=== PATIENT | female | born 2005 | race Two or more races ===

== ENCOUNTER 2025-03-24 17:19 | Emergency (ER) | payer MEDICAID, SELFPAY ==
[2025-03-24 17:41] VITALS: BP 144/92; PULSE 83; RESP 17; TEMP 36.9; O2SAT 97; BMI 33.4
--- NOTE | 2025-03-24 17:47 | XR_ITS ---
Examination: Abdomen sonogram, Limited Date and time of exam: March 24, 2025, 1900 hours INDICATIONS: Epigastric pain radiating to the back beginning 10 days ago Technique: Real-time garcia scale transabdominal sonographic images of the upper abdomen obtained. Findings: Multiple gallstones Gallbladder wall 0.29 cm no edema Common bile duct 0.2 cm Pancreatic head 2.6 cm Liver 12.2 cm fatty infiltration no focal liver lesions Normal hepatopetal portal venous flow Patent IVC IMPRESSION: Cholelithiasis, negative for cholecystitis
--- NOTE | 2025-03-24 17:47 | PD.EDRME ---
Rapid Medical Screening Exam E Arrival date/time: 03/24/25 17:19 19-year-old female presents to the emergency department today for complaint of upper abdominal pain patient ports history of cholelithiasis patient reports symptom onset 10 days ago Chief Complaint: Abdominal Pain Time Seen by Provider: 03/24/25 17:35 Vital signs: Vital Signs Temperature 98.4 F 03/24/25 17:41 Pulse Rate 83 03/24/25 17:41 Respiratory Rate 17 03/24/25 17:41 Blood Pressure 144/92 H 03/24/25 17:41 Pulse Oximetry (%) 97 03/24/25 17:41 Oxygen Delivery Method Room Air 03/24/25 17:41 Exam: Clinically patient well-appearing does not appear ill or toxic patient is mild abdominal pain in epigastrium Clinical Impression: Lab work imaging ordered
[2025-03-24 18:27] LABS: Alanine Aminotransferase 25 U/L (10-49); Albumin, Serum 5.0 gm/dL (3.5-5.0); Albumin/Globulin Ratio 1.7 (1.2-2.2); Alkaline Phosphatase 118 U/L (46-116); Anion Gap 11 (7-16); Aspartate Amino Transferase 22 U/L (0-34); BUN/Creatinine Ratio 7 Ratio (12-20); Bilirubin,Total 0.4 mg/dL (0.3-1.2); Blood Urea Nitrogen < 5 mg/dL (9-23); Calcium 10.1 mg/dL (8.3-10.6); Calcium (Corrected) 10.1 mg/dL (8.5-10.1); Carbon Dioxide 26.3 mMol/L (20.0-31.0); Chloride 105 mMol/L (98-107); Creatinine (Component) 0.7 mg/dL (0.6-1.3); Estimated Creatinine Clearance 151.9 mL/min (>60); Globulin 2.9 gm/dL (2.3-3.5); Glucose 97 mg/dL (74-106); Lipase 28 U/L (12-53); Osmolality,Calculated 280 (275-295); Potassium 3.9 mMol/L (3.4-5.1); Sodium 142 mMol/L (136-145); Total Protein 7.9 gm/dL (5.7-8.2); eGFR > 60 See Note
[2025-03-24 18:29] LABS: Basophils # (Auto) 0.0 Thou/mm3 (0.0-0.2); Basophils % (Auto) 0 % (0-2.5); Eosinophils # (Auto) 0.2 Thou/mm3 (0.0-0.5); Eosinophils % (Auto) 2 % (0-10); Hematocrit 40.5 % (36.0-46.0); Hemoglobin 13.8 g/dL (12.0-16.0); Immature Granulocytes Auto 0.02 Thou/mm3 (0.00-0.00); Lymphocytes # (Auto) 3.4 Thou/mm3 (1.0-4.8); Lymphocytes % (Auto) 32 % (10-50); Mean Corpuscular HGB Conc 34.1 g/dl (31.0-37.0); Mean Corpuscular Hemoglobin 27.9 pg (25.0-35.0); Mean Corpuscular Volume 82 fL (80-100); Monocytes # (Auto) 0.7 Thou/mm3 (0.0-0.8); Monocytes % (Auto) 6 % (0-12); Neutrophils # (Auto) 6.3 Thou/mm3 (1.8-7.7); Neutrophils % (Auto) 59 % (37-80); Nucleated Red Blood Cell # 0.00 Thou/mm3 (0.00-0.00); Nucleated Red Blood Cell % 0 /100 WBC (0); Platelet Count 323 Thou/mm3 (140-440); RDW Standard Deviation 37.5 fL (36.4-46.3); Red Blood Count 4.94 Miln/mm3 (4.00-5.20); White Blood Count 10.5 Thou/mm3 (3.6-11.0)
--- NOTE | 2025-03-24 18:46 | PD.EDABDPN ---
ED Abdominal Pain RME/HPI General Chief Complaint: Abdominal Pain Stated complaint: UPPER MID ABD. PAIN RADIATING THROUGH BACK Time seen by provider: 03/24/25 17:35 Arrival date/time: 03/24/25 17:19 RME / HPI RME / HPI narrative: 03/24/25 17:19 19-year-old female presents to the emergency department today for complaint of upper abdominal pain patient ports history of cholelithiasis patient reports symptom onset [address] Banerjee?s Main ED Evaluation: 19yo female with a known history of gallstones presenting with diffuse upper abdominal pain that radiates to the RUQ and right flank that has been ongoing intermittently for the last 10 days. No postprandial exacerbation. No frequency, urgency, or urgency. Reports occasional diarrhea. No URI or cough. No fever or chills. LMP was 1 week [employer]. Patient's current pain pattern is similar to when she was initially diagnosed with gallstones. PMH includes gallstones and gastritis. PSH and social history are unremarkable. NKA. Related Data Previous Rx's ?Medication ?Instructions ?Recorded famotidine 20 mg tablet (Pepcid) 20 mg PO QDAY #30 tabs 03/24/25 hyoscyamine sulfate 0.125 mg 0.125 mg PO TID PRN cramping #10 03/24/25 tablet (Levsin) tabs Allergies Allergy/AdvReac Type Severity Reaction Status Date / Time No Known Allergies Allergy Verified 03/24/25 17:22 Review of Systems Review of Systems Systems Reviewed: All systems reviewed, normal except as documented Past Medical History Social History SMOKING STATUS: Never smoker ED Exam Narrative Physical exam: GENERAL APPEARANCE: alert and oriented x 4, nontoxic, resting comfortably, well-developed, well-nourished, no acute distress VITALS: All vitals were reviewed and the pulse ox is 97% on room air, which is normal according to my interpretation. HEENT: Normocephalic, atraumatic; pupils equal, round, reactive to light; EOMI; mucous membranes pink, moist; oropharynx clear NECK: Supple LUNGS: CTABL; no wheezes, no rales, no rhonchi HEART: Regular rate, regular rhythm; normal S1, S2; no murmurs ABDOMEN: non distended; normal BS; soft, no tenderness, no guarding, no rebound; no masses, no organomegaly, no hernia BACK: no CVA tenderness EXTREMITIES: atraumatic; no edema NEUROLOGIC: awake; alert and oriented x4; cranial nerves II-XII grossly intact; no focal sensory or motor deficits PSYCHIATRIC: appropriate mood and affect SKIN: warm, dry, normal color; no rashes Course Quality Measures none Orders Category Date Time Status US gall bladder Stat Exams 03/24/25 17:47 Completed CBC Stat Lab 03/24/25 17:58 Completed Comprehensive Metabolic Panel Stat Lab 03/24/25 17:58 Completed HCG Qualitative,Urine Stat Lab 03/24/25 17:47 Ordered Lipase Stat Lab 03/24/25 17:58 Completed UA, C/S IF [Urinalysis, C/S if Indicated] Stat Lab 03/24/25 17:47 Ordered Vital Signs Vital signs: Vital Signs Temperature 98.4 F 03/24/25 17:41 Pulse Rate 83 03/24/25 17:41 Respiratory Rate 17 03/24/25 17:41 Blood Pressure 144/92 H 03/24/25 17:41 Pulse Oximetry (%) 97 03/24/25 17:41 Oxygen Delivery Method Room Air 03/24/25 17:41 Abdominal Pain MDM MDM Narrative MDM Narrative:: Scribe Attestation: 03/24/25 Keturah Herrera am scribing for and in the presence of Dr. Banerjee. 19yo female with a known history of gallstones presenting with diffuse upper abdominal pain that radiates to the RUQ and right flank that has been ongoing intermittently for the last 10 days. No postprandial exacerbation. Please see PE findings. Lab markers including CBC and chemistries are unremarkable except for Alk Phos at elevated normal at 118. Remaining LFTs are normal. Gallbladder US demonstrated evidence of fatty liver and high normal gallbladder wall thickness 0.29cm with multiple gallstones, but normal CBD. Will place the patient on PPI, antispasmotic, and have the patient maintain low fat diet, and encourage general surgeon as symptoms are likely related to biliary colic. Patient data External records reviewed:: [facility] previous records (Per chart review, patient has no previous ED visits or admissions to this facility.) Clinical information provided by:: patient Social determinants that could affect healthcare access:: none Patient has the following chronic illnesses:: none How is presenting disease/condition affected by chronic disease/condition?: no chronic disease Evaluation data The following diagnostics were reviewed and interpreted by me:: lab results and radiology exam(s) Lab and/or radiology exams considered but not ordered:: none Interpretation Summary: [facility] Report Signed Patient: EDGAR PEREZ. Record#: [id number] Birthdate: 2005 Age/Sex: 19 / F [facility] Dr: Ordering Physician: Freddy ESPITIA)Victoriano NP Date of Service: 03/24/25 Procedure(s): US gall bladder Accession Number(s): [id number] cc: Nicanor Villeda PA-C; Freddy ESPITIA),Victoriano MONTERO; Ronald Jefferson MD~ Examination: Abdomen sonogram, Limited Date and time of exam: March 24, 2025, 1900 hours INDICATIONS: Epigastric pain radiating to the back beginning 10 days ago Technique: Real-time garcia scale transabdominal sonographic images of the upper abdomen obtained. Findings: Multiple gallstones Gallbladder wall 0.29 cm no edema Common bile duct 0.2 cm Pancreatic head 2.6 cm Liver 12.2 cm fatty infiltration no focal liver lesions Normal hepatopetal portal venous flow Patent IVC IMPRESSION: Cholelithiasis, negative for cholecystitis Dictated By: Ronald Jefferson MD Signed By: <Electronically signed by Ronald Jefferson MD in OV> 03/24/25 2114 Medications / Prescriptions Medications or Prescriptions considered but not ordered:: none Medication administrations:: see above, if any Consultations Consultation(s) initiated? (list below): No Diagnosis Differential diagnosis abdominal pain: pancreatitis Most likely diagnosis given after review of the tests above:: see clinical impression below Admission Indicated Admission indicated?: not indicated Admission Request Was there a request for admission?: No Disposition Plan Disposition Plan: Discharge Discharge Attestation Discharge Attestation: The patient and all family members were given an opportunity to ask questions and understood the discharge instructions. Discharge instructions specifically effects, indications for sooner follow up or return to the emergency department, and the expected course of current diagnosis. Patient condition: Stable Discharge Plan Plan Patient Disposition: HOME (Self Care) Discharge Disposition comment: Stable Prescriptions/Referrals Prescriptions/Med Rec: New famotidine [Pepcid] 20 mg tablet 20 mg PO QDAY Qty: 30 0RF hyoscyamine sulfate [Levsin] 0.125 mg tablet 0.125 mg PO TID PRN (Reason: cramping) Qty: 10 0RF Referrals: Nicanor Villeda PA-C [Primary Care Provider] - In 1 week Problem List Clinical Impression: Gastritis, Biliary colic symptom Patient/Caregiver Discharge Instructions Discharge Activity: activity as tolerated Diet Instructions: Low-fat diet Education Materials: ED Gallstones with Biliary Colic, ED Gastritis (Adult) Additional Instructions: Low-fat diet. Medication as directed. Follow-up primary care doctor for referral to general surgeon for consideration of cholecystectomy. Print Language: Chinese Stand Alone Forms: Gloria Award Info., Patient Portal Info Letter
--- NOTE | 2025-03-24 20:58 | PC.NURSE ---
2035 CALLED ULTRASOUND FOR READ ON IMAGE.
[2025-03-24 21:53] VITALS: BP 150/94; PULSE 88; RESP 17; TEMP 37.3; O2SAT 96
== END 2025-03-24 21:57 | disposition home or self-care (01) ==
PROVIDERS: Nurse Practitioner Primary Care; Emergency Provider Emergency Medicine; PCP Family Medicine
DX: K29.70 Gastritis, unspecified, without bleeding (principal); K80.70 Calculus of gallbladder and bile duct without cholecystitis without obstruction
CPT/HCPCS: 36415; 76705; 80053; 81001; 81025; 83690; 85025; 99283

== ENCOUNTER 2025-05-12 06:20 | Day surgery (SDC) | payer MEDICAID, SELFPAY ==
[2025-05-11 10:16] VITALS: BMI 37.0
[2025-05-11 11:11] LABS: Basophils # (Auto) 0.0 Thou/mm3 (0.0-0.2); Basophils % (Auto) 0 % (0-2.5); Eosinophils # (Auto) 0.1 Thou/mm3 (0.0-0.5); Eosinophils % (Auto) 1 % (0-10); Hematocrit 39.8 % (36.0-46.0); Hemoglobin 13.7 g/dL (12.0-16.0); Immature Granulocytes Auto 0.02 Thou/mm3 (0.00-0.00); Lymphocytes # (Auto) 4.6 Thou/mm3 (1.0-4.8); Lymphocytes % (Auto) 52 % (10-50); Mean Corpuscular HGB Conc 34.4 g/dl (31.0-37.0); Mean Corpuscular Hemoglobin 28.2 pg (25.0-35.0); Mean Corpuscular Volume 82 fL (80-100); Monocytes # (Auto) 0.4 Thou/mm3 (0.0-0.8); Monocytes % (Auto) 5 % (0-12); Neutrophils # (Auto) 3.6 Thou/mm3 (1.8-7.7); Neutrophils % (Auto) 41 % (37-80); Nucleated Red Blood Cell # 0.00 Thou/mm3 (0.00-0.00); Nucleated Red Blood Cell % 0 /100 WBC (0); Platelet Count 266 Thou/mm3 (140-440); RDW Standard Deviation 37.1 fL (36.4-46.3); Red Blood Count 4.85 Miln/mm3 (4.00-5.20); White Blood Count 8.7 Thou/mm3 (3.6-11.0)
[2025-05-11 11:23] LABS: Alanine Aminotransferase 110 U/L (10-49); Albumin, Serum 4.5 gm/dL (3.5-5.0); Albumin/Globulin Ratio 1.5 (1.2-2.2); Alkaline Phosphatase 108 U/L (46-116); Anion Gap 10 (7-16); Aspartate Amino Transferase 52 U/L (0-34); BUN/Creatinine Ratio 16 Ratio (12-20); Bilirubin,Total 0.5 mg/dL (0.3-1.2); Blood Urea Nitrogen 11 mg/dL (9-23); Calcium 8.7 mg/dL (8.3-10.6); Calcium (Corrected) 8.7 mg/dL (8.5-10.1); Carbon Dioxide 26.9 mMol/L (20.0-31.0); Chloride 106 mMol/L (98-107); Creatinine (Component) 0.7 mg/dL (0.6-1.3); Estimated Creatinine Clearance 139.3 mL/min (>60); Globulin 3.0 gm/dL (2.3-3.5); Glucose 103 mg/dL (74-106); Osmolality,Calculated 284 (275-295); Potassium 3.9 mMol/L (3.4-5.1); Sodium 143 mMol/L (136-145); Total Protein 7.5 gm/dL (5.7-8.2); eGFR > 60 See Note
[2025-05-11 11:34] LABS: HCG,Qualitative Serum Negative
[2025-05-12] VITALS (8 sets, daily range): BP systolic 110–138; BP diastolic 68–87; PULSE 72–107; RESP 12–20; TEMP 36.3–36.4; O2SAT 89–100; BMI 37.2
[2025-05-12] MEDS: RINGERS LACTATED 1000 ML 1,000 ML 20 ML IV (07:42)
--- NOTE | 2025-05-12 09:25 | SUR.PHASEI ---
0925: Pt. arrived with oral airway in place, vitals stable, breathing unlabored, no signs of distress, x4 dermabond sites to ABD CDI, no active bleed noted, report received from MD Estrada and Ese RN.
--- NOTE | 2025-05-12 09:32 | PD.SUROPNT ---
Date of Procedure 05/12/25 Pre Op Diagnosis Symptomatic cholelithiasis Post Op Diagnosis Cholelithiasis with cholecystitis Hydrops of the gallbladder Procedure Laparoscopic cholecystectomy Findings Distended and tense gallbladder with a stone at the neck of the gallbladder causing hydrops Procedure Description Patient was brought into the operating room in supine position. After administration of general endotracheal anesthesia abdomen was prepped and draped in standard surgical manner. A Veress needle was inserted through the umbilicus and pneumoperitoneum was obtained up to 15 mmHg. The Veress needle was then removed, a 5 mm infraumbilical incision was made and the 5mm trocar was inserted. Laparoscopic camera was placed. Under direct visualization a laparoscopic camera a 10 mm trocar was placed in subxiphoid and two 5 mm trocars placed in right upper quadrant. The gallbladder was identified and was noted to be very distended and tense with a stone in the neck of the gallbladder. The gallbladder was decompressed with an aspirator, the contents were clear fluid consistent with hydrops of the gallbladder. The gallbladder was retracted cephalad and laterally. Dissection started near the infundibulum of gallbladder where cystic duct and gallbladder junction clearly identified. The cystic duct was circumferentially dissected off the peritoneum and surrounding inflammatory tissue. The critical view of safety was clearly demonstrated. Cystic duct was then divided between 2 endoclips proximally and one distally. The cystic artery was similarly dissected and divided. The gallbladder was then from the liver bed using electrocautery. The gallbladder was then placed inside an Endo Catch and removed from the abdomen utilizing subxiphoid trocar site. The area was copiously and thoroughly washed and irrigated, all the fluid was suctioned and the suction fluid returned clear. Hemostasis achieved using electrocautery. Endoclips noted be in place and intact without any bleeding or any leakage. Hemostasis was adequate and satisfactory. The subxiphoid trocar sites fascial defect was closed with 0 Vicryl using Endo Closure device. Instruments and trocars removed, pneumoperitoneum was evacuated and the incisions closed with 4-0 Monocryl in subcuticular fashion. Instrument needle and sponge counts were all reported to be correct X2. Patient tolerated the procedure well, was extubated, breathing spontaneously and without difficulty and was transferred to postanesthesia care in stable condition. Anesthesia GETA and local Pathology / specimen Other (Gallbladder and contents) Estimated Blood Loss 10 Condition Stable Disposition PACU Surgeon Gita Abbott MD Surgical Staff Operation Date: 05/12/25 08:30 Case Staff Anesthesiologist: Valdez Estrada RN First Assistant: Selene Velez
[2025-05-12] MEDS: HYDROcodone/APAP 5/325 TABLET 1 TAB PO (10:17)
[2025-05-12] MEDS: ONDANSETRON INJ 2 MG/ML INJ 2 ML 4 MG IVP (10:17)
--- NOTE | 2025-05-12 10:35 | SUR.PHASEII ---
1035: Pt. AAOx4, vitals stable, breathing unlabored, complaint of slight pain, pt. stated pain is tolerable, slight nausea, pt. stated nausea tolerable, x4 dermabond sites to ABD CDI, no active bleed noted, pt. tolerated sips of water well, pt. ambulated to wheelchair with steady gait and no assist, no complications. Gave discharge instructions to the pt. and her ride, both verbalized understanding and had no further questions. Pt. left with all personal belongings.
== END 2025-05-12 10:35 | disposition home or self-care (01) ==
PROVIDERS: PCP Family Medicine; Referring Provider Surgery; Visit Provider Surgery
PROC: 0FT44ZZ Resection of Gallbladder, Percutaneous Endoscopic Approach (ICD-10-PCS; CPT 47562; principal; 2025-05-12 08:30)
DX: K80.10 Calculus of gallbladder with chronic cholecystitis without obstruction (principal); K82.1 Hydrops of gallbladder
CPT/HCPCS: 47562; 36415; 80053; 84703; 85025; A4217; A4649; J0131; J0694; J2250; J2405; J2704; J3010; J3490; J7120; A9270